=== PATIENT | female | born 1950 | race Caucasian/White ===

== ENCOUNTER → 2018-03-27 | Outpatient (CLI) | payer MEDICARE, OTHER ==
[~2018-03-27] MED LIST: Aspir 8181 MG; BIEST/PROGESTERONE TOP; CALCAVITD; CENTRUM SILVER1 EAC2; CHOL10002; ESTRTP VAG; FISH1000; PROG100 PO
== END | disposition home or self-care (01) ==
LOC: LAB 17:55 → LAB SHORT 17:55
PROVIDERS: Nurse Practitioner Women's Health
DX: Z12.4 Encounter for screening for malignant neoplasm of cervix (principal); Z91.89 Other specified personal risk factors, not elsewhere classified
CPT/HCPCS: 87624; G0123

== ENCOUNTER → 2019-04-01 | Outpatient (CLI) | payer MEDICARE, OTHER ==
[2019-04-02 14:06] LABS: HPV 16 Negative (Negative); HPV 18 Negative (Negative); HPV OTHER HR TYPES Negative (Negative)
== END | disposition home or self-care (01) ==
LOC: LAB 12:53 → LAB SHORT 12:53
PROVIDERS: Nurse Practitioner Women's Health
DX: Z12.72 Encounter for screening for malignant neoplasm of vagina (principal); Z91.89 Other specified personal risk factors, not elsewhere classified
CPT/HCPCS: 87624; G0123

== ENCOUNTER 2021-05-11 07:06 | Day surgery (SDC) | payer MEDICARE, BC ==
[~2021-05-11] VITALS: Ht 154.9 cm; Wt 50.6 kg
[~2021-05-11 07:06] MED LIST changes: +PROLIA60 MG/1 ML SQ
== END 2021-05-11 09:28 | disposition home or self-care (01) ==
LOC: ORSCSDS 07:06
PROVIDERS: Surgery
PROC: 0DJD8ZZ Inspection of Lower Intestinal Tract, Via Natural or Artificial Opening Endoscopic (ICD-10-PCS; principal; 2021-05-11 08:30)
DX: K59.04 Chronic idiopathic constipation (principal); Z86.010 Personal history of colon polyps; E78.00 Pure hypercholesterolemia, unspecified; Z79.82 Long term (current) use of aspirin; Z79.899 Other long term (current) drug therapy
CPT/HCPCS: J2704; J7120